=== PATIENT | male | born 1985 | race African-American/Black ===

== ENCOUNTER 2021-11-16 09:07 | Emergency (ER) | payer SELFPAY ==
[~2021-11-16] VITALS: Ht 175.3 cm; Wt 77.1 kg
--- NOTE | 2021-11-16 09:55 | NUR ---
Pt. came in with c/o pelvic pain rates it 5/10 states also has burning when urinates
--- NOTE | 2021-11-16 09:59 | NUR ---
ER in triage examining patient.
[2021-11-16 10:00] VITALS: BP_SYST 122
--- NOTE | 2021-11-16 10:07 | NUR ---
Patient ambulated to radiology, accompanied by staff.
--- NOTE | 2021-11-16 11:13 | NUR ---
to lab for blood draw
[2021-11-16 11:19] LABS: BASOPHILS % (AUTO) 0.2 % (0.0-2.0); EOSINOPHILS % (AUTO) 0.1 % (0.0-4.0); HEMOGLOBIN 14.1 g/dL (14.0-18.0); LYMPHOCYTES # (AUTO) 0.8 K/uL (1.0-5.5); LYMPHOCYTES % (AUTO) 6.7 % (20.5-51.5); MEAN CORPUSCULAR HEMOGLOBIN 30 pg (27-31); MEAN CORPUSCULAR HGB CONC 34 % (32-36); MEAN CORPUSCULAR VOLUME 88 fL (79.0-98.0); MONOCYTES # (AUTO) 0.8 K/uL (0.0-1.0); MONOCYTES % (AUTO) 7.3 % (1.7-9.3); NEUTROPHILS # (AUTO) 9.7 K/uL (1.8-7.7); NEUTROPHILS % (AUTO) 85.7 % (40.0-70.0); PLATELET COUNT (AUTO) 171 K/uL (130-430); RED BLOOD CELL COUNT(AUTO) 4.68 MIL/uL (4.2-6.2); RED CELL DISTRIBUTION WIDTH 12.3 % (9.0-15.0); WHITE BLOOD COUNT (AUTO) 11.3 K/uL (4.8-10.8)
[2021-11-16 11:46] LABS: BILIRUBIN,URINE 1+ (NEGATIVE); BLOOD, URINE 3+ (NEGATIVE); CLARITY/URINE TURBID (CLEAR); COLOR,URINE YELLOW (YELLOW); GLUCOSE,URINE NEGATIVE (NEGATIVE); KETONES,URINE 3+ (NEGATIVE); LEUKOCYTE ESTERASE ,URINE 2+ (NEGATIVE); NITRITE, URINE POSITIVE (NEGATIVE); PH,URINE 5.5 (5.0-8.0); PROTEIN URINE 3+ (NEGATIVE)
[2021-11-16 11:59] LABS: CALCIUM 8.9 mg/dL (8.4-11.0); CREATININE 1.03 mg/dL (0.55-1.30); POTASSIUM 3.7 mmol/L (3.5-5.1)
[2021-11-16] MEDS ORDERED: NITR-85 PO (12:13)
[2021-11-16] MEDS ORDERED: IBUP-1971 PO (12:13)
[2021-11-16] MEDS ORDERED: cefTRIAXone 1 GM in LIDOCAINE 1%, 20 ML MDV 2.1 ML IM ONE (12:15)
[2021-11-16 12:24] LABS: C-REACTIVE PROTEIN QUANT 13.1 mg/dL (0-0.5)
[2021-11-16 12:32] LABS: BACTERIA,URINE MODERATE /HPF (None Seen); MUCUS,URINE 1+ /LPF (None Seen); RBC,URINE 50-80 /HPF (0-3); WBC,URINE >100 /HPF (0-3)
[2021-11-16 12:54] VITALS: BP_SYST 128
--- NOTE | 2021-11-16 12:55 | NUR ---
Patient given written and verbal discharge instructions and verbalizes understanding. ER Dr. Jin discussed with patient the results and treatment provided. Patient in stable condition. ID arm band removed. Rx of Motrin and Macrobid given. Patient educated on pain management and to follow up with PMD. Pain Scale 4. Opportunity for questions provided and answered. Medication side effect fact sheet provided.
== END 2021-11-16 12:54 | disposition home or self-care (01) ==
LOC: SED 09:07
DX: N39.0 Urinary tract infection, site not specified (principal); Z79.899 Other long term (current) drug therapy
CPT/HCPCS: 36415; 74176; 76376; 80053; 81000; 83605; 85025; 86140; 87086; 96372; 99284; J0696; J2001